=== PATIENT | male | born 1945 | race Caucasian/White ===

== ENCOUNTER 2016-12-10 06:07 | Day surgery (SDC) | payer OTHER, MEDICARE ==
[2016-12-07 12:09] VITALS: BMI 30.7
[2016-12-10] MEDS ORDERED: MIDAZOLAM HCL 2 MG/2 ML SINGLE DOSE VIAL ONE (07:46)
[2016-12-10] MEDS ORDERED: SUCCINYLCHOLINE CHLORIDE 200 MG/10 ML VIAL ONE (08:20)
[2016-12-10] MEDS ORDERED: PROPOFOL 20 ML ONE ×2 (08:20)
[2016-12-10] MEDS ORDERED: ROCURONIUM BROMIDE 50 MG/5 ML VIAL ONE (08:20)
[2016-12-10] MEDS ORDERED: LIDOCAINE HCL 2% 100 MG/5 ML DISP.SYRIN ONE (08:23)
[2016-12-10] MEDS ORDERED: ceFAZolin SODIUM 1 GM VIAL ONE (08:42)
[2016-12-10] MEDS ORDERED: LIDOCAINE 1%/EPI 1:100000 (20 ML MULTI DOSE VIAL) INF ONE ×4 (08:43→09:36)
[2016-12-10] MEDS ORDERED: PHENYLEPHRINE HCL 10 MG/1 ML SINGLE DOSE VIAL ONE (08:48)
[2016-12-10] MEDS ORDERED: DEXAMETHASONE SOD PHOSPHATE 4 MG/1 ML VIAL ONE (08:51)
[2016-12-10] MEDS ORDERED: ONDANSETRON 4 MG/2 ML VIAL ONE (08:51)
[2016-12-10] MEDS ORDERED: HYDROmorphone HCL/PF 1 MG/ML VIAL (FOR PYXIS CHARGING ONLY) ONE (08:55)
[2016-12-10] MEDS ORDERED: DESFLURANE GAS 240 ML BOTTLE IH ONE (08:56)
[2016-12-10] MEDS ORDERED: BACITRACIN 3.5 GM OPTHALMIC OINT TUBE ONE (10:26)
[2016-12-10] MEDS ORDERED: NEO/POLYMYX B SULF/DEXAMETH OPHTHALMIC OINTMENT 3.5 GM ONE (11:19)
[2016-12-10] MEDS ORDERED: NEO/POLYMYX B SULF/DEXAMETH OPHTHALMIC 5ML BOTTLE ONE (11:19)
[2016-12-10] MEDS ORDERED: oxyCODONE HCL 5 MG TABLET PO PRN ×3 (11:59)
[2016-12-10] MEDS ORDERED: LACTATED RINGERS SOLUTION 1,000 ML IV SCH ×2 (12:00)
[2016-12-10] MEDS ORDERED: ONDANSETRON 4 MG/2 ML VIAL IVPUSH ONE (12:15)
--- NOTE | 2016-12-10 12:42 | OP ---
DATE OF OPERATION: 12/10/2016 TITLE OF PROCEDURE: Bilateral lower eyelid blepharoplasty with flap revision of reconstruction to nose status post nasal reconstruction from skin cancer. PREOPERATIVE DIAGNOSIS: Deformity of right side of nose status post nasal reconstruction from skin cancer and bilateral lower eyelid skin and fat excess. ATTENDING SURGEON: Jocelin Hawley MD ANESTHESIA: General endotracheal anesthesia. The local anesthetic used is 1% lidocaine with 1:100,000 epinephrine. A total of 3 mL was used on the nose and an additional 5 mL was used for each lower eyelid and surrounding periorbita. The patient is marked in the holding area. Discussion is had of all risks, benefits, and alternatives to the procedures. He understands and agrees to proceed. The patient is marked awake and aware of incisions and resulting scars. He is then brought into the operating room, placed in a supine position where sequential compression stockings are given. Ancef 2 g is given. He is positioned and carefully checked by surgical and anesthesia teams. He is prepped and draped in standard surgical fashion. A timeout is called. Patient, procedure, and side/sites are verified. At this point, the nasal reconstruction is injected after which an incision is made along the inferior border of the flap on the right side of the nose. Through this, a subcutaneous dissection is performed and the flap is undermined past the skin scars both superiorly and medially. Through this, the scar tissue and fat on the deep surface of the flap and along the exoskeleton of the nose are removed. Hemostasis is meticulously achieved. Flap is judiciously trimmed and it is then readvanced and inset into the defect. Deep sutures to recreate the contour of the nasal sidewall and the alar groove are performed with quilting 5-0 Monocryl suture. Skin is then closed with a series of interrupted 6-0 Prolene suture. After the right eyelid is injected, attention is then directed toward the right eyelid for blepharoplasty. A subciliary and lateral tribal's foot incision are made. Lacri-Lube is used to protect the cornea bilaterally. A tarsal traction suture is used to also protect the cornea and provide traction. A skin flap is developed for 1.5 cm and is then transitioned into a skin muscle flap to the level of the orbital rim through which a septum is visualized. Defects are made to remove fat from each of the medial, lateral, and central compartments. A judicious amount of fat is removed. Meticulous hemostasis is assured. The skin is then redraped and attention is then directed toward the contralateral left side. After injection of these tissues in a similar fashion, a mirror-image procedure is performed. The skin is redraped. A decision is made to perform lateral canthopexy bilaterally. Small spreading on the lateral canthal area is performed and a 5-0 Monocryl suture is used to pexy the lateral canthal fibers to the lateral internal orbital rim periosteum. This provides good lid position and support. This is performed bilaterally. The skin prior to the canthopexy had been marked for excision and redraping. These lockhart are followed. Skin excision is performed very judiciously and the lateral tribal's foot incision is repaired with a series of interrupted 6-0 Prolene suture and the subciliary portion is closed with a running 6-0 fast-absorbing plain gut suture. Slight lateral conjunctival edema is noticed bilaterally and to address this dexamethasone ointment is applied to the conjunctiva in this area and a lateral tarsorrhaphy suture using a 6-0 Prolene suture is placed to protect this inflamed portion of the conjunctiva. Ten minutes of pressure is held on the operative areas after which the incisions are dressed with bacitracin ophthalmic. Supportive Steri-Strips are placed from the cheek to the forehead to take tension off of the closure. The nose is dressed with bacitracin, Xeroform, 4 x 4 gauze, and Hypafix tape. Patient is awoken from anesthesia, transferred to recovery. Will be observed. Please note that the lateral tarsorrhaphy suture and the canthopexy are performed in mirror image bilaterally. JOCELIN HAWLEY M.D. [id number]
[2016-12-10] MEDS ORDERED: ONDANSETRON 4 MG/2 ML VIAL IVPB PRN (13:45)
[2016-12-10] MEDS ORDERED: ONDANSETRON 4 MG/2 ML VIAL IVPUSH PRN (13:45)
[2016-12-10] MEDS ORDERED: PROMETHAZINE HCL 25 MG/1 ML VIAL IVPUSH PRN (13:47)
[2016-12-10 15:30] VITALS: TEMP 98.2
[2016-12-10 15:35] VITALS: BP 135/74; PULSE 69
== END 2016-12-10 15:00 | disposition home or self-care (01) ==
LOC: FASU 06:07
PROVIDERS: ATTEND Plastic Surgery
PROC: 0HX1XZZ Transfer Face Skin, External Approach (ICD-10-PCS; 2016-12-10)
PROC: 080R0ZZ Alteration of Left Lower Eyelid, Open Approach (ICD-10-PCS; principal; 2016-12-10 08:54)
PROC: 080Q0ZZ Alteration of Right Lower Eyelid, Open Approach (ICD-10-PCS; 2016-12-10 08:54)
DX: M95.0 Acquired deformity of nose (principal); Z85.828 Personal history of other malignant neoplasm of skin; H02.35 Blepharochalasis left lower eyelid; E65 Localized adiposity
CPT/HCPCS: 94760